=== PATIENT | male | born 1980 | race African-American/Black ===

== ENCOUNTER 2024-01-25 10:25 | Emergency (ER) | payer MEDICARE, OTHER ==
[2024-01-25 11:58] LABS: #Basophils 0.04 10x3/uL (0.0-0.2); #Eosinophils 0.09 10x3/uL (0.0-0.5); #Monocytes 0.59 10x3/uL (0.0-1.1); #Neutrophils 2.78 10x3/uL (1.5-8.4); %Basophils 0.7 % (0.0-2.0); %Eosinophils 1.7 % (0.0-6.0); %Monocytes 10.9 % (0.0-10.0); %Neutrophils 51.5 % (40.0-75.0); Hematocrit 34.6 % (38.8-50.0); Hemoglobin 11.7 g/dL (13.5-17.5); Mean Corpuscular HGB CONC 33.8 g/dL (32.0-36.0); Mean Corpuscular Hemoglobin 32.3 pg (27.0-33.0); Mean Corpuscular Volume 95.6 fL (81.2-95.1); Mean Platelet Volume 11.8 fL (7.4-10.4); Platelet Count 137 10x3/uL (150-450); RBC Distribution Width 13.9 % (11.5-14.5); Red Blood Cell (RBC) Count 3.62 10x6/uL (4.32-5.72); White Blood Cell (WBC) Count 5.4 10x3/uL (3.5-10.5)
[2024-01-25 12:12] LABS: ALT (SGPT) 33 U/L (8-55); AST (SGOT) 27 U/L (5-34); Albumin 3.6 g/dL (3.5-5.0); Alkaline Phosphatase 91 U/L (40-110); Anion Gap 18 mmol/L (10-20); BUN (Urea Nitrogen) 67 mg/dL (8.9-20.6); Bilirubin, Total 0.5 mg/dL (0.2-1.2); Calc. Creatinine Clearance 0 mL/min (70-130); Carbon Dioxide 22 mmol/L (22-29); Chloride 107 mmol/L (98-107); Estimated GFR 4; Globulin 3.7 g/dL (2.4-3.5); Glucose 87 mg/dL (70-105); Potassium 5.9 mmol/L (3.5-5.1); Protein, Total 7.3 g/dL (6.0-8.3); Sodium 141 mmol/L (136-145)
[2024-01-25 12:13] LABS: Troponin I 0.031 ng/mL (< 0.028)
== END 2024-01-25 13:49 | disposition home or self-care (01) ==
LOC: CSHERS 10:25
DX: R06.02 Shortness of breath (principal); E11.22 Type 2 diabetes mellitus with diabetic chronic kidney disease; N18.6 End stage renal disease; Z99.2 Dependence on renal dialysis; Z55.6 Problems related to health literacy
CPT/HCPCS: 36415; 71045; 80053; 83880; 84484; 85025; 85379; 93005

== ENCOUNTER 2024-02-12 08:57 | Emergency (ER) | payer MEDICARE, OTHER ==
[2024-02-12 10:39] LABS: #Basophils 0.03 10x3/uL (0.0-0.2); #Eosinophils 0.12 10x3/uL (0.0-0.5); #Monocytes 0.53 10x3/uL (0.0-1.1); #Neutrophils 2.74 10x3/uL (1.5-8.4); %Basophils 0.6 % (0.0-2.0); %Eosinophils 2.5 % (0.0-6.0); %Lymphocytes 29.6 % (18.0-47.0); %Monocytes 10.9 % (0.0-10.0); %Neutrophils 56.2 % (40.0-75.0); Hemoglobin 11.7 g/dL (13.5-17.5); Mean Corpuscular HGB CONC 35.5 g/dL (32.0-36.0); Mean Corpuscular Hemoglobin 32.7 pg (27.0-33.0); Mean Corpuscular Volume 92.2 fL (81.2-95.1); Mean Platelet Volume 11.8 fL (7.4-10.4); Platelet Count 117 10x3/uL (150-450); RBC Distribution Width 13.4 % (11.5-14.5); Red Blood Cell (RBC) Count 3.58 10x6/uL (4.32-5.72); White Blood Cell (WBC) Count 4.9 10x3/uL (3.5-10.5)
[2024-02-12 10:45] LABS: Prothrombin Time 11.1 sec (9.5-12.1)
== END 2024-02-12 11:26 | disposition home or self-care (01) ==
LOC: CSHERS 08:57
DX: J01.90 Acute sinusitis, unspecified (principal); I12.0 Hypertensive chronic kidney disease with stage 5 chronic kidney disease or end stage renal disease; E11.22 Type 2 diabetes mellitus with diabetic chronic kidney disease; N18.6 End stage renal disease; Z99.2 Dependence on renal dialysis
CPT/HCPCS: 36415; 71046; 85025; 85610; 99283

== ENCOUNTER 2024-03-04 22:41 | Emergency (ER) | payer MEDICARE, OTHER | END 2024-03-04 23:39 | disposition home or self-care (01) | LOC: CSHERS 22:41 | DX: B34.9 Viral infection, unspecified (principal); I12.0 Hypertensive chronic kidney disease with stage 5 chronic kidney disease or end stage renal disease; E11.22 Type 2 diabetes mellitus with diabetic chronic kidney disease; N18.6 End stage renal disease; Z99.2 Dependence on renal dialysis; Z79.899 Other long term (current) drug therapy | CPT/HCPCS: 99283 ==